=== PATIENT | male | born 1935 ===

== ENCOUNTER → 2018-03-23 | Outpatient (CLI) | payer MEDICARE | LOC: GMAH 10:46 | PROVIDERS: ATTEND Family Medicine | DX: Z12.5 Encounter for screening for malignant neoplasm of prostate (principal) ==

== ENCOUNTER 2018-09-29 19:47 | Emergency (ER) | payer MEDICARE ==
[2018-09-29] MEDS ORDERED: ASPIRIN (CHEWABLE) 81 MG TAB PO ONE (20:01)
[2018-09-29 20:12] VITALS: O2SAT 98
--- NOTE | 2018-09-29 20:24 | ED.PDOC ---
History of Present Illness - General Chief Complaint: Chest Pain/TX Stated Complaint: nausea, diaphoresis Time Seen by Provider: 09/29/18 19:59 Source: patient Exam Limitations: no limitations - History of Present Illness Initial Comments: Patient presents after having a brief episode of stomach discomfort and diaphoresis about 2 hours [employer]. He says that he checked his blood pressure after the event and it was "high". He also thought his pulse was high but he is not sure what the rate was. He has NIDDM. He was told by way of an EKG in the past that he had a heart attack once but he says that he never felt it. He is asymptomatic in the E.R. He denies ever having chest pain or chest discomfort. No other complaints. Timing/Duration: 1-3 hours Severity: mild Improving Factors: nothing Worsening Factors: nothing Associated Symptoms: denies symptoms Allergies/Adverse Reactions: Allergies Sulfa Antibiotics Adverse Reaction (Verified 09/29/18 20:30) Home Medications: Ambulatory Orders Lisinopril [Prinivil] 10 PO DAILY 09/29/18 Metformin HCl [Metformin HCl] 500 PO BID 09/29/18 Sitagliptin Phosphate [Januvia] 100 PO DAILY 09/29/18 Review of Systems - Review of Systems Constitutional: States: diaphoresis EENTM: States: no symptoms reported Respiratory: States: no symptoms reported Cardiology: States: no symptoms reported Gastrointestinal/Abdominal: States: see HPI Genitourinary: States: no symptoms reported Musculoskeletal: States: no symptoms reported Skin: States: no symptoms reported Neurological: States: no symptoms reported Endocrine: States: no symptoms reported Hematologic/Lymphatic: States: no symptoms reported Past Medical History (General) - Patient Medical History Hx Seizures: No Hx Stroke: No Hx Dementia: No Hx Asthma: No Hx of COPD: No Hx Cardiac Disorders: Yes Hx Congestive Heart Failure: No Hx Pacemaker: No Hx Hypertension: Yes Hx Thyroid Disease: No Hx Diabetes: Yes - type 2, NIDDM Hx Gastroesophageal Reflux: No Hx Renal Disease: No Hx Cancer: Yes - postrate Hx of HIV: No Hx Hepatitis C: No Hx MRSA: No Surgical History: no surgical history - Vaccination History Hx Tetanus, Diphtheria Vaccination: Yes - due for update Hx Influenza Vaccination: No - about to get it Hx Pneumococcal Vaccination: No Immunizations Up to Date: No - due for flue, tetnius - Social History Hx Tobacco Use: Yes Years Tobacco Use: 20 Hx Chewing Tobacco Use: No Hx Alcohol Use: No Hx Substance Use: No Hx Substance Use Treatment: No Hx Depression: No Feels Threatened In Home Enviroment: No Feels Threatened In a Relationship: No Hx Physical Abuse: No Hx Emotional Abuse: No Hx Suspected Abuse: No - Female History Patient is a Female of Child Bearing Age (10 -59 yrs old): No - Triage Comment ED Triage Comment: AAOX4, converses with no diffiulty and deny pain or discomfort at this time Family Medical History - Family History Maternal Family History: Unknown Physical Exam - Physical Exam General Appearance: Alert Eye Exam: bilateral normal Ears, Nose, Throat: normal ENT inspection Neck: non-tender, full range of motion, supple Respiratory: lungs clear, normal breath sounds, no respiratory distress Cardiovascular/Chest: normal peripheral pulses, regular rate, rhythm, no edema Gastrointestinal/Abdominal: normal bowel sounds, non tender, soft Back Exam: normal inspection, no CVA tenderness Extremity: normal range of motion, non-tender, normal inspection 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, no motor/sensory deficits, alert, normal mood/affect, oriented x 3 Skin Exam: normal color Lymphatic: no adenopathy Progress - Progress Progress: 09/29/18 21:51 Laboratory Tests 09/29/18 09/29/18 09/29/18 20:00 20:14 20:14 WBC 8.0 RBC 4.81 Hgb 14.9 Hct 44.1 MCV 91.6 MCH 31.1 H MCHC 33.9 RDW 13.0 Plt Count 266 MPV 8.6 Absolute Neuts (auto) 4.10 Absolute Lymphs (auto) 3.00 Absolute Monos (auto) 0.70 Absolute Eos (auto) 0.30 Absolute Basos (auto) 0.00 Neutrophils % 50.8 Lymphocytes % 37.4 Monocytes % 8.1 Eosinophils % 3.2 Basophils % 0.5 PT INR PTT (SP) Sodium 143 Potassium 3.9 Chloride 107 Carbon Dioxide 26 Anion Gap 13.9 BUN 29 H Creatinine 0.92 BUN/Creatinine Ratio 31.5 H POC Glucose Random Glucose 91 Serum Osmolality 290.4 Calcium 9.4 Total Bilirubin 1.1 H AST 16 ALT 12 Alkaline Phosphatase 105 Creatine Kinase 46 CK-MB (CK-2) 2.5 CK-MB (CK-2) % Not Reportable Troponin I < 0.02 Serum Total Protein 7.7 Albumin 4.6 Globulin 3.1 Albumin/Globulin Ratio 1.5 Urine Color Yellow Urine Appearance Clear Urine pH 5.5 Ur Specific Sherman 1.010 Urine Protein Negative Urine Glucose (UA) Negative Urine Ketones Negative Urine Blood Negative Urine Nitrite Negative Urine Bilirubin Negative Urine Urobilinogen 0.2 Ur Leukocyte Esterase Negative Urine RBC 0 Urine WBC 0 Ur Epithelial Cells 0 Amorphous Sediment 1+ Urine Bacteria 0 09/29/18 09/29/18 20:14 20:14 WBC RBC Hgb Hct MCV MCH MCHC RDW Plt Count MPV Absolute Neuts (auto) Absolute Lymphs (auto) Absolute Monos (auto) Absolute Eos (auto) Absolute Basos (auto) Neutrophils % Lymphocytes % Monocytes % Eosinophils % Basophils % PT 9.6 INR 0.96 PTT (SP) 26.0 Sodium Potassium Chloride Carbon Dioxide Anion Gap BUN Creatinine BUN/Creatinine Ratio POC Glucose 73 Random Glucose Serum Osmolality Calcium Total Bilirubin AST ALT Alkaline Phosphatase Creatine Kinase CK-MB (CK-2) CK-MB (CK-2) % Troponin I Serum Total Protein Albumin Globulin Albumin/Globulin Ratio Urine Color Urine Appearance Urine pH Ur Specific Sherman Urine Protein Urine Glucose (UA) Urine Ketones Urine Blood Urine Nitrite Urine Bilirubin Urine Urobilinogen Ur Leukocyte Esterase Urine RBC Urine WBC Ur Epithelial Cells Amorphous Sediment Urine Bacteria EKG showed no acute ST changes nor T wave inversions. No LBBB. Cardiac enzymes were negative. Patient remained asymptomatic while in the E.D. Blood pressure was 135/65. Patient discharged with E.R. warnings and follow up instructions. Questions were elicited and answered. The patient voiced understanding and agreement with the plan. Departure - Departure Clinical Impression: Nausea, Diaphoresis Disposition: Discharge to Home or Self Care Condition: Good Departure Forms: ED Discharge - Pt. Copy, Patient Portal Self Enrollment Instructions: DI for Chest Pain Diet: diabetic diet Activity: increase activity as tolerated Referrals: Heber Lal MD [Primary Care Provider] - 1-2 Weeks Home Medications: Ambulatory Orders Lisinopril [Prinivil] 10 PO DAILY 09/29/18 Metformin HCl [Metformin HCl] 500 PO BID 09/29/18 Sitagliptin Phosphate [Januvia] 100 PO DAILY 09/29/18 Additional Instructions: Return to the E.R. if symptoms happen again. See your regular doctor next week regarding your blood pressure.
--- NOTE | 2018-09-29 20:25 | RAD ---
EXAM DESCRIPTION: Chest,1 View CLINICAL HISTORY: 82 years Male, chest discomfort Comparison: None FINDINGS: Single AP view of the chest Cardiomediastinal silhouette is within normal limits. No focal lung consolidation. No pleural effusion. No pneumothorax. Punctate radiodense focus projecting in the right lung at the level of the second-third intercostal space may be outside the body contours or a possibly calcified. No acute osseous finding. IMPRESSION: No acute chest finding. Electronically signed by: Sapna Wilson MD 09/29/2018 8:23 PM CDT
[2018-09-29 22:09] VITALS: BP 135/65; TEMP 98
== END 2018-09-29 22:00 | disposition home or self-care (01) ==
LOC: ER 19:47
DX: R11.0 Nausea (principal); R61 Generalized hyperhidrosis; I25.2 Old myocardial infarction; I51.9 Heart disease, unspecified; I10 Essential (primary) hypertension; E11.9 Type 2 diabetes mellitus without complications; Z85.46 Personal history of malignant neoplasm of prostate; Z87.891 Personal history of nicotine dependence; Z79.84 Long term (current) use of oral hypoglycemic drugs; Z79.899 Other long term (current) drug therapy; Z88.2 Allergy status to sulfonamides

== ENCOUNTER → 2018-11-24 | Outpatient (CLI) | payer MEDICARE ==
--- NOTE | 2018-11-24 09:01 | CT ---
EXAM DESCRIPTION: Abdomen w/o Contrast CLINICAL HISTORY: ABDOMINAL PAIN LEFT LOWER QUADRANT COMPARISON: None. TECHNIQUE: Noncontrast transaxial CT images of the abdomen are obtained. This exam was performed according to our departmental dose-optimization program, which includes automated exposure control, adjustment of the mA and/or kV according to patient size and/or use of iterative reconstruction technique . FINDINGS: Visualized lung bases show no acute findings. Coronary artery calcifications are incidentally noted. Given the limitations of a noncontrast exam the liver, spleen, pancreas, adrenal glands, and gallbladder are unremarkable. Moderate calcific atherosclerotic disease is seen. No nephrolithiasis. No ureteral obstruction. Adjustable gastric banding device is seen. Small hiatal hernia is noted. Stomach is relatively decompressed and unremarkable. Visualized small bowel is unremarkable. Moderate scattered diverticuli of the descending to visualize proximal sigmoid colon are seen without associated inflammatory changes or fluid collections. The appendix is not identified. No pathologic lymphadenopathy. No free air. No abnormal fluid collections. Osseous structures show no aggressive bony lesions. Degenerative changes of the spine are seen. IMPRESSION: No acute findings on CT of the abdomen. The lower abdomen and pelvis is not included in the [id number] on the CT of the abdomen. Moderate colon diverticulosis without CT evidence of diverticulitis. Adjustable gastric banding device is seen in place. Electronically signed by: Cliff Dawn MD 11/24/2018 8:59 AM [employer]
== END ==
LOC: CT 08:30
PROVIDERS: ATTEND Family Medicine
DX: R10.32 Left lower quadrant pain (principal); K57.90 Diverticulosis of intestine, part unspecified, without perforation or abscess without bleeding; Z98.84 Bariatric surgery status

== ENCOUNTER → 2019-05-14 | Outpatient (CLI) | payer MEDICARE | LOC: GMAH 10:32 | PROVIDERS: ATTEND Family Medicine | DX: I10 Essential (primary) hypertension (principal); Z12.5 Encounter for screening for malignant neoplasm of prostate | CPT/HCPCS: 84550; G0103 ==

== ENCOUNTER → 2020-08-05 | Outpatient (CLI) | payer MEDICARE | LOC: GMA MATASK 11:16 | PROVIDERS: ATTEND Family Medicine | DX: I10 Essential (primary) hypertension (principal); C61 Malignant neoplasm of prostate; E11.9 Type 2 diabetes mellitus without complications ==